=== PATIENT | female | born 1945 | race Caucasian/White ===

== ENCOUNTER 2017-06-27 19:06 | Emergency (ER) | payer SELFPAY ==
[~2017-06-27] VITALS: Ht 160 cm; Wt 71.0 kg
[2017-06-27 19:13] VITALS: Ht 160 cm; Wt 71.0 kg
--- NOTE | 2017-06-27 22:02 | RADRPT ---
PROCEDURE: CT Brain without contrast. CLINICAL INDICATION: Trauma. TECHNIQUE: A multiplanar CT of the brain was performed on a CT scanner utilizing axial imaging fro m the skull base through the vertex without IV contrast. The CTDIvol is 43.27 mGy and the DLP is 72 0.23 mGycm. One or more of the following dose reduction techniques were utilized: Automated exposu re control, adjustment of the mA and/or kV according to patient size, use of iterative reconstructio n technique. COMPARISON: None FINDINGS: No evidence of intracranial hemorrhage or abnormal extra-axial fluid collection. Right supraorbital and the nasal bridge soft tissue swelling. No underlying calvarial fracture. 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 Atherosclerotic calcification o f the cavernous internal carotid arteries. The basal cisterns, posterior fossa contents, brainstem, craniocervical junction, orbits, pituitary axis, paranasal sinuses, mastoid air cells, and calvarium are unremarkable. IMPRESSION: 1. No intracranial hemorrhage or acute intracranial abnormality. Mild right supraorbital nasal brid ge soft tissue swelling without underlying calvarial fracture. 2. Mild chronic microvascular ischemic changes and age related volume loss. Early ischemic injury m ay be occult to CT imaging and diffusion weighted MRI may be considered as clinically warranted. RPTAT:AAJJ Physician Sascha Date Time Electronically viewed and signed by Physician Sascha on 06/27/2017 22:02 MICKEY/
--- NOTE | 2017-06-27 22:15 | RADRPT ---
PROCEDURE: CT Cervical Spine without contrast. CLINICAL INDICATION: Trauma. Neck pain. TECHNIQUE: A CT of the cervical spine was performed on a CT scanner utilizing thin section axial images from the skull base through the thoracic inlet. Sagittal and coronal reformatted images were made. The CTDIvol is 19.16 mGy and the DLP is 385.34 mGycm. Automated exposure control, adjustment of the mA and/or kV according to patient size, use of iterative reconstruction technique. COMPARISON: No prior studies are available for comparison. FINDINGS: Straightening of the cervical spine with left. Block partial fusion of the C6, C7, and T8 with a juliet imentary intervertebral discs and partial fusion of posterior elements bilaterally likely congenital in nature. Correlate with surgical history. No fracture is evident. C2-3: The disc is normal in height. Partial fusion of the lateral masses of C2 on C3 on the right. N o significant disk bulge or protrusion is evident. There is no central canal stenosis or foraminal n arrowing. C3-4: The disc is normal in height. Severe left and moderate right foraminal stenosis with posterior spondylitic ridging and bilateral uncovertebral joint hypertrophy and moderate left foraminal steno sis without central canal or right foraminal stenosis. C4-5: Mild disc space narrowing. Moderate to severe left hypertrophic facet joint arthropathy. Poste rior spondylitic ridging and. No significant disk bulge or protrusion is evident. There is no centra l canal stenosis or foraminal narrowing. C5-6: Severe degenerative disc space narrowing and endplate sclerosis with 2 mm anterolisthesis of C 5 on C6 with posterior spondylitic ridging and bilateral uncovertebral joint hypertrophy irregularit y of the left posterolateral corner without evidence of fracture. No significant disk bulge or protr usion is evident. There is no central canal stenosis or foraminal narrowing. C6-7: Rudimentary disc with partial vertebral body fusion as described above. There is no central canal stenosis or foraminal narrowing. C7-T1: Rudimentary disc with partial vertebral body fusion as described above. No significant disk bulge or protrusion is evident. There is no central canal stenosis or foraminal narrowing. No paraspinal soft tissue abnormality. IMPRESSION: 1. No fracture or dislocation. No paraspinal soft tissue abnormality. 2. Partial congenital fusion of the C6, C7, and T8 with rudimentary intervertebral discs and bilate ral facet joint fusion. Partial fusion of the lateral masses of the C2 and C3 on the right. 3. Advanced multilevel degenerative discogenic changes and spondylosis/enthesopathy. This is most p ronounced as C3-C4 with moderate left foraminal stenosis without central canal or right foraminal st enosis. No central canal or foraminal stenosis at any level. RPTAT:AAJJ Shirley Saleh Physician Date Time Electronically viewed and signed by Shirley Saleh Physician on 06/27/2017 22:15 MICKEY/
--- NOTE | 2017-06-27 22:24 | RADRPT ---
PROCEDURE: Thoracic spine CLINICAL INDICATION: Trauma, pain TECHNIQUE: AP and lateral views of the thoracic spine COMPARISON: None FINDINGS: There is normal alignment of the thoracic spine. There is mild anterior height loss at T10, and min imal anterior height loss at L1, of uncertain age. There is bony demineralization. There is no subl uxation. There is mild disc space narrowing through the lower thoracic spine. Soft tissue structures appear within normal limits. IMPRESSION: 1. Bony demineralization. 2. Mild appearing anterior height loss at T10 and minimal appearing height loss at T12, of uncertai n age. RPTAT: HBST .Juan C Lau MD, MD Date Time Electronically viewed and signed by .Juan C Lau MD, on 06/27/2017 22:24 .T/
--- NOTE | 2017-06-27 22:30 | RADRPT ---
PROCEDURE: XR Lumbar Spine. CLINICAL INDICATION: 71 years of age, female. Pain. TECHNIQUE: AP, lateral and cone-down lateral view of the lumbar spine were obtained. COMPARISON: No prior studies are available for comparison. FINDINGS: There are 5 lumbar-type vertebrae. Lumbar spine is imaged from T10 to the sacrum. There is a curvature convex right centered on L3. There is mild left spondylolisthesis at L2-3. Alig nment is otherwise anatomic. There is age indeterminate anterior wedging of the T10 and T12 vertebral bodies. Negative for parave rtebral soft tissue swelling. Bones are osteopenic. No suspicious bone lesions. There is multilevel degenerative disc disease that is greatest at L1-2, L2-3 and L5-S1 with disc spa ce narrowing and osteophytes. There is facet joint arthritis in the lower lumbar spine. The posterior elements are unremarkable. Sacroiliac joints appear normal. Cholecystectomy clips right upper quadrant. IMPRESSION: Age indeterminate anterior wedging of the T10 and T12 vertebral bodies. If there is focal pain, jason mmend CT. Multilevel degenerative disc disease with curvature convex right. Osteopenia. RPTAT: HCTS Physician Yanet Date Time Electronically viewed and signed by Physician Yanet on 06/27/2017 22:30 /
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
[2017-06-27 22:50] VITALS: BP 158/76; PULSE 62; RESP 16
== END 2017-06-27 22:52 | disposition home or self-care (01) ==
LOC: FTE 19:06
DX: S39.92XA Unspecified injury of lower back, initial encounter (principal); S16.1XXA Strain of muscle, fascia and tendon at neck level, initial encounter; S09.90XA Unspecified injury of head, initial encounter; R51 Headache; W18.39XA Other fall on same level, initial encounter; Y92.9 Unspecified place or not applicable
CPT/HCPCS: 70450; 72072; 72100; 72125